=== PATIENT | male | born 1945 | race Caucasian/White ===

== ENCOUNTER 2022-09-07 01:14 | Emergency (ER) | payer MEDICARE, SELFPAY ==
--- NOTE | ~2022-09-07 | XR_ITS ---
EXAMINATION: XR CHEST CLINICAL INFORMATION: Syncope COMPARISON: None available. TECHNIQUE: Frontal view of the chest was obtained. FINDINGS: No significant abnormality is noted involving the heart, lungs, mediastinum, bony thorax or soft tissues. XR/XR chest 1V IMPRESSION: Unremarkable examination.
--- NOTE | ~2022-09-07 | CT_ITS ---
EXAMINATION: NONCONTRAST HEAD CT NONCONTRAST MAXILLOFACIAL CT NONCONTRAST CERVICAL SPINE CT INDICATION INFORMATION: Fall. COMPARISON: None TECHNIQUE: Separate noncontrast CT examinations of the head, maxillofacial bones, and cervical spine were performed. Coronal and sagittal images were created for each examination at the technologist workstation. This CT examination was performed using dose optimization techniques as appropriate, variously including the following: *Automated exposure control *Adjustment of mA and/or kV according to patient size (this includes techniques or standardized protocols for targeted exams where dose is matched to indication/reason for exam; i.e. extremities or head) *Use of iterative reconstruction technique DLP: 1323 mGy-cm FINDINGS: Head: There is no evidence of acute intracranial hemorrhage or territorial infarction. No abnormal mass effect or midline shift is seen. Elliott to white matter differentiation is well preserved. No extra-axial fluid collections are identified. No hydrocephalus. Proportional prominence of the ventricles and sulcal spaces is consistent with moderate volume loss. There is no crowding of the parasagittal gyri near the vertex or narrowing of the callosal angle to support superimposed normal pressure hydrocephalus. Patchy periventricular and deep white matter hypoattenuation is consistent with moderate small vessel ischemic changes. No acute soft tissue abnormality. No calvarial fracture. The mastoid air cells are well aerated. Maxillofacial: No acute maxillofacial fractures are seen. The pterygoid plates are intact. The lamina papyracea are intact. The zygomatic arches are intact. The orbital rims are intact. Mandible and temporomandibular joints are intact. Mucosal thickening and secretions within the right maxillary sinus. Mild mucosal thickening along the inferior alveolar recess of the left maxillary sinus. A prominent periapical cyst along the root of the left maxillary second premolar extends into the left maxillary sinus. Remaining paranasal sinuses are clear. Chronic rightward deviation of the osseous nasal septum. The orbits demonstrate a normal appearance bilaterally. The globes are intact, and there are no suspicious findings to suggest retrobulbar hemorrhage. Soft tissues unremarkable. Cervical spine: There is anatomic alignment of the vertebral bodies and posterior elements. The atlantoaxial and atlantooccipital articulations are intact. Vertebral body heights are maintained. Bulky endplate osteophytes present from C3-C7 with accompanying uncovertebral arthrosis and facet arthropathy leading to varying degrees of foraminal narrowing throughout the cervical spine, moderate to severe from C4-C7 bilaterally moderate to severe on the right C3-C4. There is at least moderate central canal stenosis at C4-C5 and C5-C6 with mild central canal stenosis at. No evidence of acute fracture. No prevertebral soft tissue swelling. Imaged lungs are clear. The thyroid gland is unremarkable. CT/CT cervical spine wo IV con IMPRESSION: 1. No acute intracranial findings. 2. No acute maxillofacial fracture. 3. No acute fracture or malalignment of the cervical spine. Severe cervical spondylosis as described, with multilevel at least moderate central canal stenosis, particularly at C4-C5 and C5-C6, and multilevel moderate if not severe foraminal narrowing.
[2022-09-07 01:19] VITALS: BMI 20.7
--- NOTE | 2022-09-07 01:34 | PC.NURSE ---
Pt presents via EMS from a local hotel for evaluation for nausea, vomiting, and diarrhea and a subsequent fall that happened after dinner this past evening. Pt reports feeling well prior to the onset of symptoms. No recent travel or recent illness or fever, and no contact with any known sick persons. Pt was feeling nauseous and attempted to make his way to the bathroom and began feeling the urge to move his bowels. While in the bathroom, felt weak and dizzy and subsequently fell, unwitnessed, any LOC is unknown. C-collar applied with EMS secondary to the fall. CSMs intact. Denies any blood thinners. All medications taken as prescribed. Per EMS, pt was negative for CVA symptoms/findings. Denies any head, neck, or back pain. C/o intermitent dizziness, but denies headache and any visual disturbances. Pupils are equal, round, and reactive to light.
[2022-09-07 01:38] VITALS: BP 119/81; PULSE 74; RESP 16; TEMP 36.6; O2SAT 100
--- NOTE | 2022-09-07 01:47 | PC.NURSE ---
20G IV access established left AC. No infiltation, pain, redness, or swelling. Flushes well.
--- NOTE | 2022-09-07 01:48 | PC.NURSE ---
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 Original Note: at bedside.
--- NOTE | 2022-09-07 02:06 | ECG_ITS ---
Test Reason : FALL Blood Pressure : / mmHG Vent. Rate : 083 BPM Atrial Rate : 083 BPM P-R Int : 162 ms QRS Dur : 062 ms QT Int : 434 ms P-R-T Axes : 063 059 045 degrees QTc Int : 509 ms Artifact in tracing Normal sinus rhythm Prolonged QT Abnormal ECG No previous ECGs available Referred By: Swati Lau Electronically Signed By:LOCO CAMP
[2022-09-07] MEDS: 0.9 % Sodium Chloride 1,000 ML 999 ML IV ×2 (02:13→05:56)
--- NOTE | 2022-09-07 02:15 | ED.FALL ---
HPI - Fall General Chief Complaint: Fall Stated Complaint: vomiting and head strike Time Seen by Provider: 09/07/22 02:05 Source: patient and family Mode of arrival: ambulatory Limitations: no limitations History of Present Illness HPI Narrative: 76-year-old male came in for evaluation after collapsed and fell. Patient stated after he ate dinner outside creamy sauce doc started to have nausea, vomiting, nonbloody watery diarrhea several times felt generally weak, patient tried to go to the bathroom felt weak and fell down patient unable to give details of the history of falling, patient fell hit his head and the right side of his face. No chest pain, no abdominal pain, no headache, no blurry vision, no double vision. Patient stated that he is otherwise healthy. Patient drove from [facility] today. Related Data Allergies Allergy/AdvReac Type Severity Reaction Status Date / Time No Known Allergies Allergy Verified 09/07/22 01:48 Review of Systems Review of Systems: All other systems are reviewed and are negative Constitutional: Reports as per HPI and Reports no additional constitutional complaints Eyes: Reports as per HPI and Reports no additional eye complaints Reports system reviewed and no additional complaints, except as documented Cardiovascular: Reports as per HPI and Reports no additional cardiovascular complaints Respiratory: Reports as per HPI and Reports no additional respiratory complaints Gastrointestinal: Reports as per HPI and Reports no additional gastrointestinal complaints Genitourinary: Reports no additional female genitourinary complaints Musculoskeletal: Reports no additional musculoskeletal complaints Skin/Breast: Reports system reviewed and no additional complaints, except as docu Psychiatric: Reports no additional psychiatric complaints Endocrine: Reports no additional endocrine complaints Hematologic/Lymphatic: Reports no additional hematologic/lymphatic complaints Allergic/Immunologic: Reports no additional allergic/immunologic complaints Reports system reviewed and no additional complaints, except as documented and Reports Abnormal speech present [facility] Social History Social History Advance Directives: No Advance Directives Information Provided: Yes Physical Exam Vital Signs: Vital Signs: Last Vital Signs Temp 97.9 F 09/07/22 01:38 Pulse 87 09/07/22 05:06 Resp 16 09/07/22 05:06 BP 119/70 09/07/22 05:06 Pulse Ox 96 09/07/22 05:06 O2 Del Method Room Air 09/07/22 05:06 BMI result Body Mass Index 20.7 Vital signs have been reviewed as appeared to be correct. Blood pressure normal. Heart rate normal. Respiration rate normal. Temperature normal. Oxygen saturation normal. Appearance: Alert. Oriented X3. No acute distress. Head: Normal external exam. Normocephalic. A small right milton orbital ecchymosis.. No Resendiz signs noted. No raccoon eyes noted Eyes: PERRLA. EOMI. Conjunctiva and sclera normal. Eyelids normal. ENT: TM's Normal. Pharynx normal. Uvula midline. Moist mucous membranes. No trismus noted. No drooling noted. No muffled voice noted. Neck: Normal inspection. Neck supple. FROM. No adenopathy. Thyroid Normal. No meningeal signs. No neck mass noted. CVS: Normal heart rate and rhythm. Heart sound normal. No murmurs noted. Pulses normal throughout. Respiratory: No respiratory distress. Painless inspiration. Breath sounds normal. No wheezes/rales/rhonchi noted. Chest nontender. No accessory muscle usage noted or decreased air movement noted. Abdomen: Soft and nontender. Bowel sounds normal in all 4 quadrants. No distention noted. No organomegaly noted. No visible injury noted. Back: No CVA tenderness. Full range of motion noted. Skin: Skin warm and dry. Normal skin color. Normal skin turgor. No rashes/lesions/lacerations noted. Extremities: No lower extremity edema. Extremities exhibit normal range of motion. Extremities nontender. Neuro: Oriented X 3. Cranial nerve exam: II-XII are grossly intact No motor deficit. No sensory deficit. Reflexes normal. Course Course Course Narrative: 76-year-old male presented with mild dehydration after acute food poisoning, patient feels better with IV hydration. Medications Administered Discontinued Medications Generic Name Dose Route Start Last Admin Trade Name Freq PRN Reason Stop Dose Admin Sodium Chloride 1,000 mls @ 999 mls/hr 09/07/22 02:05 09/07/22 03:21 Ns IV 09/07/22 03:05 Infused .Q1H1M ONE Infusion Sodium Chloride 1,000 mls @ 999 mls/hr 09/07/22 05:26 09/07/22 05:56 Ns IV 09/07/22 06:26 999 mls/hr .Q1H1M ONE Administration Loperamide HCl 2 mg 09/07/22 02:05 09/07/22 02:35 Loperamide Hcl 2 Mg Capsule PO 09/07/22 02:06 2 mg ONCE ONE Administration Meclizine HCl 25 mg 09/07/22 05:26 09/07/22 05:56 Meclizine Hcl 25 Mg Tablet PO 09/07/22 05:27 25 mg ONCE ONE Administration Ondansetron HCl 4 mg 09/07/22 02:05 09/07/22 02:35 Ondansetron Hcl 4 Mg/2 Ml Vial IVPUSH 09/07/22 02:06 4 mg ONCE ONE Administration Ondansetron HCl 4 mg 09/07/22 05:26 09/07/22 05:56 Ondansetron Hcl 4 Mg/2 Ml Vial IVPUSH 09/07/22 05:27 4 mg ONCE ONE Administration Medical Decision Making Differential Diagnosis Differential Diagnoses: The differential diagnosis associated with the presentation includes (ACS, dehydration, electrolyte abnormalities, severe anemia, orthostatic hypotension, food poisoning.) Admission/Observation Consideration of admission/observation: Escalation of care including admission/observation considered Lab Data MDM Lab Attestation statement: I reviewed the patient's lab results. 09/07/22 02:26 09/07/22 02:26 Labs: Lab Results 09/07/22 09/07/22 09/07/22 Range/Units 02:26 02:26 02:26 WBC 11.0 H (4.8-10.8) X10*3/uL RBC 4.96 (4.60-5.80) X10*6/uL Hgb 16.1 (14.0-18.0) g/dl Hct 46.4 (42.0-52.0) % MCV 93.5 (80.0-98.0) fL MCH 32.5 (27.0-33.0) pg MCHC 34.7 (31.0-36.0) g/dl RDW 13.2 (11.0-16.0) % Plt Count 193 (160-400) X10*3/uL MPV 11.2 (9.4-12.4) fL Immature Gran % (Auto) 0.4 (0.0-0.4) % Neut % (Auto) 85.5 H (45-73) % Lymph % (Auto) 4.8 L (20-40) % [place] % (Auto) 8.7 (2-11) % Eos % (Auto) 0.4 (0-4) % Baso % (Auto) 0.2 (0-2) % Lymph # (Auto) 0.5 L (1.2-4.9) X10*3/uL [place] # (Auto) 1.0 (0.1-1.2) X10*3/uL Eos # (Auto) 0.0 (0.0-0.4) X10*3/uL Baso # (Auto) 0.0 (0.0-0.2) X10*3/uL Abs Immat Gran (auto) 0.04 H (0.00-0.03) X10*3/uL Absolute Neuts (auto) 9.4 H (2.0-8.3) x10*3/uL Absolute Nucleated RBC 0.000 (0.0-0.012) X10*3/uL Nucleated RBC % (auto) 0.0 (0.0-0.2) /100WBC Sodium 142 (135-145) mmol/L Potassium 3.9 (3.3-5.1) mmol/L Chloride 107 (96-108) mmol/L Carbon Dioxide 24 (22-29) mmol/L Anion Gap 15 (12-20) BUN 21 H (9-16) mg/dL Creatinine 1.03 (0.5-1.4) mg/dL Estim Creat Clear Calc 48.6 Estimated GFR > 60 Random Glucose 100 (60-115) mg/dL Calcium 9.2 (8.4-10.2) mg/dL Total Bilirubin 0.9 (0.0-1.0) mg/dL Direct Bilirubin 0.3 (0.0-0.5) mg/dL AST 25 (5-37) U/L ALT 24 (0-40) U/L Alkaline Phosphatase 46 (39-117) U/L Troponin I High Sens < 2.7 (<3.5-35.0) ng/L Total Protein 6.0 L (6.5-8.0) g/dL Albumin 3.6 (3.5-5.0) g/dL Lipase 19 (8-78) U/L Independent Interpretation I performed an independent interpretation of an: Plain X-Ray (Chest: No acute intrathoracic pathology.) and CT Scan (Head/face/C-spine: No acute pathology or fracture.) Discharge Plan Discharge Clinical Impression: Syncope, Dehydration, Food poisoning Patient Disposition: Home, Self-Care Instructions: Acute Diarrhea (ED), Food Poisoning (ED)
[2022-09-07 02:31] LABS: MANUAL DIFF FLAG NO
[2022-09-07 02:32] LABS: Basophils Percent Auto 0.2 % (0-2); Eosinophils Percent Auto 0.4 % (0-4); Hematocrit 46.4 % (42.0-52.0); Hemoglobin 16.1 g/dl (14.0-18.0); Imm Gran Abs Auto 0.04 X10*3/uL (0.00-0.03); Imm Gran Pct Auto 0.4 % (0.0-0.4); Lymphocytes Absolute Auto 0.5 X10*3/uL (1.2-4.9); Lymphocytes Percent Auto 4.8 % (20-40); Mean Corpuscular HGB Conc 34.7 g/dl (31.0-36.0); Mean Corpuscular Hemoglobin 32.5 pg (27.0-33.0); Mean Corpuscular Volume 93.5 fL (80.0-98.0); Mean Platelet Volume 11.2 fL (9.4-12.4); Monocytes Percent Auto 8.7 % (2-11); Neutrophils Absolute Auto 9.4 x10*3/uL (2.0-8.3); Neutrophils Percent Auto 85.5 % (45-73); Platelet Count 193 X10*3/uL (160-400); Red Blood Count 4.96 X10*6/uL (4.60-5.80); Red Cell Distribution Width 13.2 % (11.0-16.0)
[2022-09-07] MEDS: ondansetron HCL 4 MG/2 ML VIAL IVPUSH ×2 (02:35→05:56)
[2022-09-07] MEDS: Loperamide HCl 2 MG CAPSULE PO (02:35)
--- NOTE | 2022-09-07 02:45 | PC.NURSE ---
Pt presents from home c/o abd pain that has been ongoing X 3 days, worsening today. Pain is accompanied by nausea, vomiting, and diarrhea with abd distention. Pt also c/o right sided pain, unknown cause. Denies fever or recent illness and any trauma. Known history of GERD.
--- NOTE | 2022-09-07 02:46 | MHC.EDTECH ---
This ech assumed care of Pt upon arrival. EKG Completed and handed to . Red fall precaution socks and wristband put on patient. awaiting pt to come back from imaging to obtain orthostatic vitals
[2022-09-07 02:51] VITALS: BP 121/73; PULSE 87
[2022-09-07 02:52] VITALS: BP 128/82; PULSE 91
[2022-09-07 02:53] VITALS: BP 118/76; PULSE 90
[2022-09-07 02:54] VITALS: BP 121/73; PULSE 83; RESP 16; O2SAT 100
[2022-09-07 02:56] LABS: Alanine Aminotransferase 24 U/L (0-40); Albumin Level 3.6 g/dL (3.5-5.0); Alkaline Phosphatase 46 U/L (39-117); Anion Gap 15 (12-20); Aspartate Amino Transferase 25 U/L (5-37); Bilirubin Direct 0.3 mg/dL (0.0-0.5); Bilirubin Total 0.9 mg/dL (0.0-1.0); Blood Urea Nitrogen 21 mg/dL (9-16); Calcium 9.2 mg/dL (8.4-10.2); Carbon Dioxide 24 mmol/L (22-29); Chloride 107 mmol/L (96-108); Creatinine Clr Calc Pharmacy 48.6; Estimated Glomerular Filt Rate > 60; Glucose Random 100 mg/dL (60-115); Lipase 19 U/L (8-78); Potassium 3.9 mmol/L (3.3-5.1); Sodium 142 mmol/L (135-145); Troponin-I High Sensitivity < 2.7 ng/L (<3.5-35.0)
--- OUTSIDE RECORDS SUMMARY | 2022-09-07 03:05 | XMS_ITS | Summary of Care ---
Author Name Unknown Organization [facility] Address [address] [place] [address]- Care Team Providers Care Aluminum Siding Installer Name Role Phone [place] PRAKASH MD Primary Care Physician Encounter [facility]_CSN [id number] Date(s): 02/11/21 - 02/11/[address] [address]- Discharge Disposition: Discharge Attending Physician: ZUNILDA MCFARLAND DPM Referring Physician: [place] PRAKASH MD Medications aspirin Dose: 81 mg, Entered: 02/11/21 15:34:00 EDT Start Date: 02/11/21 Status: Ordered Lipitor PO, daily, Entered: 02/11/21 15:33:00 EDT Start Date: 02/11/21 Status: Ordered tamsulosin mg, PO, daily, Entered: 02/11/21 15:32:00 EDT Start Date: 02/11/21 Status: Ordered traZODone Dose: 50 mg, PO, Entered: 02/11/21 15:31:00 EDT Start Date: 02/11/21 Status: Ordered
[2022-09-07 05:06] VITALS: BP 119/70; PULSE 87; RESP 16; O2SAT 96
[2022-09-07] MEDS: Meclizine HCl 25 MG TABLET PO (05:56)
--- NOTE | 2022-09-07 06:21 | PC.NURSE ---
Pt is resting comfortably in bed and is easily arousable with verbal stimuli. Pt verbalizes any needs and call light is within reach. surgeon partner remains at the bedside. Pt c/o some additional nausea and was given addtional medications for symptoms. Will continue to monitor.
== END 2022-09-07 07:31 | disposition home or self-care (01) ==
PROVIDERS: Emergency Medicine; Emergency Provider Emergency Medicine Emergency Medical Services
DX: R55 Syncope and collapse (principal); E86.0 Dehydration; A05.9 Bacterial foodborne intoxication, unspecified; S09.90XA Unspecified injury of head, initial encounter; W18.30XA Fall on same level, unspecified, initial encounter; Y93.9 Activity, unspecified; Y92.9 Unspecified place or not applicable; R11.10 Vomiting, unspecified; R19.7 Diarrhea, unspecified
CPT/HCPCS: 36415; 70450; 70486; 71045; 72125; 80048; 80076; 83690; 84484; 85025; 93005; 96361; 96374; 96376; 99284; 99285; J2405